=== PATIENT | female | born 1965 | race Caucasian/White ===

== ENCOUNTER → 2017-01-24 | Outpatient (CLI) | payer OTHER | LOC: FIMAGING 11:40 | PROVIDERS: ATTEND Internal Medicine | DX: Z12.39 Encounter for other screening for malignant neoplasm of breast (principal); R92.0 Mammographic microcalcification found on diagnostic imaging of breast | CPT/HCPCS: G0206 ==

== ENCOUNTER → 2017-05-05 | Outpatient (CLI) | payer OTHER | LOC: FIMAGING 14:47 | PROVIDERS: ATTEND Emergency Medicine | DX: D25.1 Intramural leiomyoma of uterus (principal); N83.201 Unspecified ovarian cyst, right side; N83.202 Unspecified ovarian cyst, left side; Z79.890 Hormone replacement therapy ==

== ENCOUNTER → 2017-09-16 | Outpatient (CLI) | payer OTHER | LOC: FIMAGING 13:13 | PROVIDERS: ATTEND Internal Medicine | DX: Z12.31 Encounter for screening mammogram for malignant neoplasm of breast (principal) ==

== ENCOUNTER → 2018-03-09 | Outpatient (CLI) | payer OTHER | LOC: FIMAGING 10:50 | PROVIDERS: ATTEND Physician Assistant | DX: M54.5 Low back pain (principal); Z85.820 Personal history of malignant melanoma of skin | CPT/HCPCS: A9503 ==

== ENCOUNTER 2018-03-30 12:10 | Day surgery (SDC) | payer OTHER ==
[2018-03-30] MEDS ORDERED: MIDAZOLAM 2 MG/2 ML VIAL IVP PRN (13:09)
[2018-03-30] MEDS ORDERED: MEPERIDINE 25 MG/ML SYR IVP PRN (13:09)
[2018-03-30] MEDS ORDERED: fentaNYL 100 MCG/2 ML INJ IVP PRN (13:09)
[2018-03-30] MEDS ORDERED: FLUMAZENIL 0.5 MG/5 ML MDV IVP PRN (13:09)
[2018-03-30] MEDS ORDERED: NALOXONE HCL 0.4 MG/ML INJ IVP PRN (13:09)
--- NOTE | 2018-03-30 13:22 | PDRADPRE ---
Radiology History & Physical Indication for procedure: back pain Home medications: Ascorbic Acid [Vitamin C 250 mg (*)] 03/27/18 [Last Taken Unknown] B Complex W-C No.20/Folic Acid [Virt-Caps Softgel] 1 mg PO 03/27/18 [Last Taken Unknown] Calcium Carbonate [Calcium] 500 mg PO 03/27/18 [Last Taken Unknown] Cholecalciferol (Vitamin D3) [Vitamin D3] 03/27/18 [Last Taken Unknown] Estradiol [Estradiol 1 MG (*)] 1.5 mg PO 03/27/18 [Last Taken Unknown] Glucosamine/MSM/Chondroitin A [Glucosamine Chondroit MSM Tab] 1 each PO [Last Taken Unknown] Herbals/Supplements -Info Only 03/27/18 [Last Taken Unknown] Magnesium Citrate 100 mg PO 03/27/18 [Last Taken Unknown] [place]-3/Dha/Epa/Fish Oil [Fish Oil 1,000 mg Softgel] 1 each PO 03/27/18 [Last Taken Unknown] Progesterone, Micronized [Progesterone] 300 mg PO DAILY 03/27/18 [Last Taken Unknown] Red Yeast Rice 600 mg PO 03/27/18 [Last Taken Unknown] Testosterone Enanthate 03/27/18 [Last Taken Unknown] Ubidecarenone [Coq-10] 03/27/18 [Last Taken Unknown] amLODIPine BESYLATE [Amlodipine Besylate] PO DAILY 03/27/18 [Last Taken Unknown] Allergies/Adverse Reactions: No Known Allergies Allergy (Unverified 09/09/15 11:43) Mental status: A&Ox3 Heart exam: regular rate and rhythm Mallampati Score: Class 2
--- NOTE | 2018-03-30 13:23 | PDPROPOC ---
Sedation Plan of Care Sedation Plan of Care: vital signs stable, patient educated of risks, benefits, alternatives, patient can tolerate sedation ASA Classification: ASA 2 Planned drugs: fentanyl, midazolam Mallampati Score: Class 2 Mallampati Reference Image: Patient passed 3-3-2 rule?: Yes
[2018-03-30] MEDS ORDERED: LIDOCAINE 1% 300 MG/30 ML SDV ONE (13:24)
[2018-03-30] MEDS ORDERED: TRIAMCINOLONE ACETONIDE 200 MG/5 ML MDV IM ONE (13:24)
[2018-03-30] MEDS ORDERED: IOPAMIDOL (ISOVUE-M 300) 15 ML VIAL ONE (13:25)
[2018-03-30] MEDS ORDERED: NS 1,000 ML IV SCH (13:30)
[2018-03-30] MEDS ORDERED: ACETAMINOPHEN 325 MG TAB PO PRN (14:04)
[2018-03-30] MEDS ORDERED: ONDANSETRON 4 MG/2 ML VIAL IVP PRN (14:04)
--- NOTE | 2018-03-30 14:05 | PDRADPN ---
Radiology Procedure Note Date of Procedure: 03/30/18 Radiologist: Sophy Milian Anesthesia: IV Sedation Pre-op Diagnosis: back pain Post-op Diagnosis: same Procedure: L2 SNRB + KEISHA Inf/Abcess present in the surg proc area at time of surgery?: No
[2018-03-30 15:09] VITALS: BP 107/72
== END 2018-03-30 15:18 | disposition home or self-care (01) ==
LOC: FIMAGING 12:10
PROVIDERS: ATTEND Physician Assistant
PROC: 3E0S3BZ Introduction of Anesthetic Agent into Epidural Space, Percutaneous Approach (ICD-10-PCS; principal; 2018-03-30 14:15)
PROC: 3E0S33Z Introduction of Anti-inflammatory into Epidural Space, Percutaneous Approach (ICD-10-PCS; principal; 2018-03-30 14:15)
DX: M47.26 Other spondylosis with radiculopathy, lumbar region (principal)
CPT/HCPCS: J2250; J2310; J3010; J3301; Q9967

== ENCOUNTER → 2018-04-30 | Outpatient (CLI) | payer OTHER | LOC: FIMAGING 10:17 | PROVIDERS: ATTEND Internal Medicine | DX: Z13.820 Encounter for screening for osteoporosis (principal); M85.89 Other specified disorders of bone density and structure, multiple sites ==

== ENCOUNTER → 2018-05-26 | Outpatient (CLI) | payer OTHER | LOC: FIMAGING 15:58 | PROVIDERS: ATTEND Internal Medicine | DX: D25.2 Subserosal leiomyoma of uterus (principal); D25.1 Intramural leiomyoma of uterus; N83.291 Other ovarian cyst, right side; N95.0 Postmenopausal bleeding ==

== ENCOUNTER → 2018-10-16 | Outpatient (CLI) | payer OTHER | LOC: FIMAGING 10:45 | PROVIDERS: ATTEND Internal Medicine | DX: Z12.31 Encounter for screening mammogram for malignant neoplasm of breast (principal); Z98.890 Other specified postprocedural states ==